=== PATIENT | male | born 1990 | race Caucasian/White ===

== ENCOUNTER 2016-05-29 20:29 | Emergency (ER) | payer SELFPAY ==
--- NOTE | ~2016-05-29 | CR108 ---
[facility] A Service of [facility] RADIOLOGY TEXT RESULTS PATIENT: JUSTIN FERREIRA LOCATION: SED : 89 UNIT #: [id number] AGE: [address]: MAT SILVA PA-C SEX: M ORDER DR: [id number] [address] [id number] [id number] MR#: [id number] Acc #: [id number] NAME: JUSTIN FERREIRA : 1990 SEX: M STUDY DATE/TIME: 05/29/2016 20:41 UNIT: SED ROOM: STUDY DESCRIPTION: CR Finger 2 View 2nd Lt Attending Physician: Mat Silva Pa-C Ordering Physician: Physician Non-Staff Primary Care Physician: Enrike Quintanilla Jr., A.P.R.N. MEDICAL IMAGING REPORT This report is preliminary unless electronic signature is present. EXAM Left second finger, 05/29/2016 HISTORY Left second digit pain. Finger infection. FINDINGS Comparison to left hand radiograph dated 07/29/2010. There is some soft tissue swelling over the second digit. There is no underlying osseous abnormalities. No foreign body. IMPRESSION Generalized soft tissue swelling of the left second digit. Dictated by... Uzair Patel M.D. THIS IS AN ELECTRONICALLY VERIFIED REPORT Uzair Patel M.D. at 05/30/2016 3:06 PM JACKY/shelia TD: 05/30/2016 01:14 JOB #: [id number] MEDICAL IMAGING REPORT Page 1 of 1
[~2016-05-29 20:29] MED LIST: KEFLEX500 MG PO; NO MEDICATIONS; PREDNISONE PO; VEETIDS 500500 M1 PO; VISCOUS LIDOCAINE 2% PO; VOLTAREN75 MG PO
== END 2016-05-29 21:33 | disposition home or self-care (01) ==
LOC: SED 20:29
DX: S61.211A Laceration without foreign body of left index finger without damage to nail, initial encounter (principal); F17.210 Nicotine dependence, cigarettes, uncomplicated; Z88.2 Allergy status to sulfonamides; Z88.8 Allergy status to other drugs, medicaments and biological substances; Z88.1 Allergy status to other antibiotic agents; W45.8XXA Other foreign body or object entering through skin, initial encounter; Y93.89 Activity, other specified; Y92.009 Unspecified place in unspecified non-institutional (private) residence as the place of occurrence of the external cause
CPT/HCPCS: 29130; 73140; 99283